=== PATIENT | male | born 1965 | race African-American/Black ===

== ENCOUNTER 2024-03-10 21:45 | Inpatient (IN) | payer OTHER ==
[~2024-03-10] VITALS: Ht 185.4 cm; Wt 74.3 kg
[~2024-03-10 21:45] MED LIST: ALBU18HF12 IH; ARIP10TA38 PO; ASPI-1444 PO; ATOR20TA65 PO; LEVE250T4 PO; OMEP20 PO; TAMS0.4C94 PO; VALB40CA2 PO
[2024-03-10] MEDS: LORazepam 2 MG/ML VIAL IM ONE (22:46)
[2024-03-10] MEDS: DiphenhydrAMINE HCL 50 MG/ML VIAL IM ONE (22:46)
[2024-03-11] MEDS ORDERED: HALOPERIDOL LACTATE 5 MG/ML VIAL ONE (00:21)
[2024-03-11 00:26] LABS: BASOPHILS % (AUTO) 0.5 % (0.0-2.0); EOSINOPHILS % (AUTO) 0.3 % (1.0-6.0); HEMATOCRIT 32.1 % (41-53); HEMOGLOBIN 10.8 g/dL (13.5-17.5); LYMPHOCYTES # (AUTO) 1.3 K/uL (1.0-4.8); LYMPHOCYTES % (AUTO) 8.9 % (22.0-44.0); MEAN CORPUSCULAR HEMOGLOBIN 29.2 pg (26.0-34.0); MEAN CORPUSCULAR HGB CONC 33.6 G/dL (31.0-37.0); MEAN CORPUSCULAR VOLUME 87 fL (80-100); MONOCYTES # (AUTO) 1.2 K/uL (0.1-1.0); MONOCYTES % (AUTO) 8.5 % (2.0-9.0); NEUTROPHILS # (AUTO) 11.6 K/uL (1.8-7.7); NEUTROPHILS % (AUTO) 81.8 % (40.0-70.0); PLATELET COUNT (AUTO) 543 K/uL (150-450); RED BLOOD CELL COUNT(AUTO) 3.69 MIL/uL (4.50-5.90); RED CELL DISTRIBUTION WIDTH 14.4 % (11.5-14.5); WHITE BLOOD COUNT (AUTO) 14.2 K/uL (4.5-11.0)
[2024-03-11] MEDS ORDERED: 0.9% SODIUM CHLORIDE 10 ML SYRINGE IVP PRN (00:30)
[2024-03-11] MEDS ORDERED: ACETAMINOPHEN 325 MG TABLET PO PRN ×2 (00:30→12:30)
[2024-03-11] MEDS ORDERED: ONDANSETRON HCL 4 MG/2 ML VIAL IVP PRN ×2 (00:30→12:30)
[2024-03-11] MEDS: LIDOCAINE 1% 10 ML VIAL SQ ONE (00:31)
[2024-03-11] MEDS: HALOPERIDOL LACTATE 5 MG/ML VIAL IVP ONE (00:32)
[2024-03-11] MEDS: POVIDONE-IODINE 10% 120 ML SOLUTION TP ONE (00:34)
[2024-03-11 00:35] LABS: ANION GAP 7 mmol/L (8-16); CALCIUM, TOTAL 8.7 mg/dL (8.8-10.5); CARBON DIOXIDE 28 mmol/L (22-29); CHLORIDE 101 mmol/L (98-107); CREATININE 0.98 mg/dL (0.60-1.30); GLOMERULAR FILTR. RATE CALC > 60 mL/min (>60); GLUCOSE,RANDOM 108 mg/dL (70-110); SODIUM SERUM 136 mmol/L (136-145); UREA NITROGEN, BLOOD 17 mg/dL (7-18)
[2024-03-11 00:41] LABS: ALANINE AMINOTRANSFERASE 34 U/L (12-78); ALBUMIN 3.1 g/dL (3.4-5.0); ALKALINE PHOSPHATASE 107 U/L (46-116); ASPARTATE AMINOTRANSFERASE 40 U/L (15-37); BILIRUBIN,TOTAL 0.5 mg/dL (0.1-1.0); TOTAL PROTEIN, SERUM 6.8 g/dL (6.4-8.2)
[2024-03-11] MEDS: PIPERACILLIN/TAZO 3.375 GM/D5W 50 ML IV ONE (00:55)
[2024-03-11] MEDS: VANCOMYCIN 1GM/WATER(PEG/NADA) 200 ML IV ONE ×2 (01:34→13:26)
[2024-03-11] MEDS: PIPERACILLIN/TAZO 3.375 GM/D5W 50 ML IV SCH (05:31)
[2024-03-11 07:30] LABS: APPEARANCE,URINE CLEAR (CLEAR); BILIRUBIN,URINE NEGATIVE (NEGATIVE); COLOR,URINE COLORLESS (YELLOW); GLUCOSE, URINE (UA) NEGATIVE (NEGATIVE); KETONES,URINE TRACE mg/dL (NEGATIVE); LEUKOCYTE ESTERASE ,URINE NEGATIVE (NEGATIVE); NITRATE,URINE NEGATIVE (NEGATIVE); OCCULT BLOOD,URINE NEGATIVE (NEGATIVE); PH,URINE 5.5 (5.0-8.0); PH,URINE DRUG SCREEN 5.5 (5.0-8.0); PROTEIN,URINE NEGATIVE (NEGATIVE); UROBILINOGEN,URINE <=1.0 mg/dL (<=1.0)
[2024-03-11 07:36] LABS: ALCOHOL, URINE DRUG SCREEN NEGATIVE (NEGATIVE); AMPHET/METH SCREEN,URINE POSITIVE (NEGATIVE); BARBITURATE SCREEN, URINE NEGATIVE (NEGATIVE); BENZODIAZEPINES SCREEN,URINE NEGATIVE (NEGATIVE); CANNABINOID SCREEN,URINE NEGATIVE (NEGATIVE); COCAINE SCREEN,URINE NEGATIVE (NEGATIVE); METHADONE SCREEN, URINE NEGATIVE (NEGATIVE); OPIATE SCREEN,URINE NEGATIVE (NEGATIVE); PHENCYCLIDINE SCREEN,URINE NEGATIVE (NEGATIVE)
[2024-03-11 08:01] LABS: COVID AG,FIA SOURCE NASAL SWAB
[2024-03-11 08:28] LABS: SARS-COV2 (COVID) ANTIGEN,FIA Negative (Negative)
[2024-03-11] MEDS ORDERED: HYDROCODONE/ACETAMINOPHEN 5-325 MG TABLET PO PRN (12:30)
[2024-03-11] MEDS ORDERED: BISACODYL 10 MG RECTAL RECTAL SUPPOSITORY PR PRN (12:30)
[2024-03-11] MEDS ORDERED: MORPHINE SULFATE 2 MG/ML SYRINGE IVP PRN (12:30)
[2024-03-11] MEDS ORDERED: ALBUTEROL SULFATE HFA 90 MCG/PUFF 8 GM INHALER IH PRN (12:30)
[2024-03-11] MEDS ORDERED: MAGNESIUM HYDROXIDE SUSPENSION 30 ML UDCUP PO PRN (12:30)
[2024-03-11] MEDS: HEPARIN SODIUM,PORCINE 5,000 UNITS/ML VIAL SQ SCH (15:25)
[2024-03-11] MEDS: VANCOMYCIN 1GM/WATER(PEG/NADA) 200 ML IV SCH (20:24)
[2024-03-11 20:55] VITALS: BP 134/80; PULSE 86; RESP 18; TEMP 98.6
[2024-03-11] MEDS: DOCUSATE SODIUM 100 MG CAPSULE PO SCH (21:04)
[2024-03-11] MEDS: LevETIRAcetam 500 MG TABLET PO SCH (21:04)
[2024-03-11] MEDS: ZOLPIDEM TARTRATE 5 MG TABLET PO PRN (22:20)
[2024-03-12 06:13] VITALS: BP 114/77; PULSE 66; RESP 20; TEMP 98
[2024-03-12 06:25] LABS: BASOPHILS % (AUTO) 0.3 % (0.0-2.0); EOSINOPHILS % (AUTO) 0.9 % (1.0-6.0); HEMATOCRIT 34.6 % (41-53); HEMOGLOBIN 11.7 g/dL (13.5-17.5); LYMPHOCYTES # (AUTO) 1.5 K/uL (1.0-4.8); LYMPHOCYTES % (AUTO) 15.2 % (22.0-44.0); MEAN CORPUSCULAR HEMOGLOBIN 29.2 pg (26.0-34.0); MEAN CORPUSCULAR HGB CONC 33.6 G/dL (31.0-37.0); MEAN CORPUSCULAR VOLUME 87 fL (80-100); MONOCYTES # (AUTO) 0.9 K/uL (0.1-1.0); MONOCYTES % (AUTO) 9.3 % (2.0-9.0); NEUTROPHILS # (AUTO) 7.2 K/uL (1.8-7.7); NEUTROPHILS % (AUTO) 74.3 % (40.0-70.0); PLATELET COUNT (AUTO) 573 K/uL (150-450); RED CELL DISTRIBUTION WIDTH 14.3 % (11.5-14.5); WHITE BLOOD COUNT (AUTO) 9.7 K/uL (4.5-11.0)
[2024-03-12 06:32] LABS: ANION GAP 9 mmol/L (8-16); CALCIUM, TOTAL 8.7 mg/dL (8.8-10.5); CARBON DIOXIDE 27 mmol/L (22-29); CHLORIDE 103 mmol/L (98-107); CREATININE 0.86 mg/dL (0.60-1.30); GLOMERULAR FILTR. RATE CALC > 60 mL/min (>60); GLUCOSE,RANDOM 89 mg/dL (70-110); SODIUM SERUM 139 mmol/L (136-145); UREA NITROGEN, BLOOD 15 mg/dL (7-18)
[2024-03-12 08:20] VITALS: BP 104/67; PULSE 82; RESP 18; TEMP 97.8
[2024-03-12] MEDS: ASPIRIN 81 MG DR TABLET PO SCH (09:54)
[2024-03-12] MEDS: TAMSULOSIN HCL 0.4 MG CAPSULE PO SCH (09:54)
[2024-03-12] MEDS: ARIPiprazole 10 MG TABLET PO SCH (09:55)
[2024-03-12] MEDS: PANTOPRAZOLE SODIUM 40 MG DR TABLET PO SCH (09:55)
[2024-03-12] MEDS: ATORVASTATIN CALCIUM 20 MG TABLET PO SCH (09:55)
[2024-03-12] MEDS ORDERED: LORazepam 2 MG/ML VIAL IVP PRN (14:55)
[2024-03-12] MEDS: LORazepam 1 MG TABLET PO PRN (15:02)
[2024-03-12 19:33] VITALS: BP 127/76; PULSE 89; RESP 18; TEMP 98.5
[2024-03-13 03:41] VITALS: BP 135/89; PULSE 82; RESP 18; TEMP 98.2
[2024-03-13 07:18] LABS: EOSINOPHILS % (AUTO) 2.6 % (1.0-6.0); HEMATOCRIT 33.7 % (41-53); HEMOGLOBIN 11.2 g/dL (13.5-17.5); LYMPHOCYTES # (AUTO) 1.4 K/uL (1.0-4.8); LYMPHOCYTES % (AUTO) 26.6 % (22.0-44.0); MEAN CORPUSCULAR HEMOGLOBIN 28.9 pg (26.0-34.0); MEAN CORPUSCULAR HGB CONC 33.4 G/dL (31.0-37.0); MEAN CORPUSCULAR VOLUME 87 fL (80-100); MONOCYTES # (AUTO) 0.6 K/uL (0.1-1.0); MONOCYTES % (AUTO) 11.3 % (2.0-9.0); NEUTROPHILS # (AUTO) 3.2 K/uL (1.8-7.7); NEUTROPHILS % (AUTO) 58.5 % (40.0-70.0); PLATELET COUNT (AUTO) 560 K/uL (150-450); RED BLOOD CELL COUNT(AUTO) 3.89 MIL/uL (4.50-5.90); RED CELL DISTRIBUTION WIDTH 14.2 % (11.5-14.5); WHITE BLOOD COUNT (AUTO) 5.4 K/uL (4.5-11.0)
[2024-03-13 07:28] LABS: ANION GAP 5 mmol/L (8-16); CALCIUM, TOTAL 8.4 mg/dL (8.8-10.5); CARBON DIOXIDE 29 mmol/L (22-29); CHLORIDE 103 mmol/L (98-107); GLOMERULAR FILTR. RATE CALC > 60 mL/min (>60); GLUCOSE,RANDOM 108 mg/dL (70-110); POTASSIUM 4.2 mmol/L (3.5-5.1); SODIUM SERUM 137 mmol/L (136-145); UREA NITROGEN, BLOOD 14 mg/dL (7-18)
[2024-03-13 08:00] VITALS: BP 127/84; PULSE 90; RESP 18; TEMP 99
[2024-03-13] MEDS ORDERED: AMOX1TAB16 PO (11:09)
== END 2024-03-13 15:25 | disposition home or self-care (01) | DRG 383 ==
LOC: EMS 21:47 → AHU 03-11 07:24 → 6S 03-11 20:36
PROVIDERS: ADMIT Internal Medicine; ATTEND Internal Medicine
PROC: 0X9K0ZZ Drainage of Left Hand, Open Approach (ICD-10-PCS; principal; 2024-03-11)
DX: L03.012 Cellulitis of left finger (principal); E78.5 Hyperlipidemia, unspecified; F20.9 Schizophrenia, unspecified; G24.01 Drug induced subacute dyskinesia; G40.909 Epilepsy, unspecified, not intractable, without status epilepticus; J45.909 Unspecified asthma, uncomplicated; K21.9 Gastro-esophageal reflux disease without esophagitis; F31.9 Bipolar disorder, unspecified; N40.0 Benign prostatic hyperplasia without lower urinary tract symptoms; F15.10 Other stimulant abuse, uncomplicated; Z20.822 Contact with and (suspected) exposure to COVID-19; Z53.20 Procedure and treatment not carried out because of patient's decision for unspecified reasons; F17.210 Nicotine dependence, cigarettes, uncomplicated; T43.505A Adverse effect of unspecified antipsychotics and neuroleptics, initial encounter; F41.9 Anxiety disorder, unspecified; Z79.82 Long term (current) use of aspirin; Z79.899 Other long term (current) drug therapy; Y92.89 Other specified places as the place of occurrence of the external cause
CPT/HCPCS: 80048; 80053; 80307; 81003; 83605; 85025; 87040; 87070; 87186; 87205; 99285; G0378; J1200; J1630; J1644; J2060; J2543; J3490; Q9967

== ENCOUNTER 2024-10-24 16:21 | Inpatient (IN) | payer MEDICAID, OTHER ==
[~2024-10-24] VITALS: Ht 188 cm; Wt 76.9 kg
[~2024-10-24 16:21] MED LIST changes: +AMOX-457 PO; -LEVE250T4 PO; +LEVE250T81 PO
[2024-10-24 17:21] LABS: BASOPHILS % (AUTO) 0.7 % (0.0-2.0); EOSINOPHILS % (AUTO) 1.7 % (1.0-6.0); HEMATOCRIT 36.9 % (41-53); HEMOGLOBIN 12.2 g/dL (13.5-17.5); LYMPHOCYTES # (AUTO) 2.1 K/uL (1.0-4.8); LYMPHOCYTES % (AUTO) 24.9 % (22.0-44.0); MEAN CORPUSCULAR HEMOGLOBIN 29.4 pg (26.0-34.0); MEAN CORPUSCULAR VOLUME 89 fL (80-100); MONOCYTES # (AUTO) 0.8 K/uL (0.1-1.0); MONOCYTES % (AUTO) 9.8 % (2.0-9.0); NEUTROPHILS # (AUTO) 5.2 K/uL (1.8-7.7); NEUTROPHILS % (AUTO) 62.9 % (40.0-70.0); PLATELET COUNT (AUTO) 442 K/uL (150-450); RED BLOOD CELL COUNT(AUTO) 4.14 MIL/uL (4.50-5.90); RED CELL DISTRIBUTION WIDTH 14.1 % (11.5-14.5); WHITE BLOOD COUNT (AUTO) 8.3 K/uL (4.5-11.0)
[2024-10-24 17:32] LABS: ANION GAP 6 mmol/L (8-16); CALCIUM, TOTAL 8.7 mg/dL (8.8-10.5); CARBON DIOXIDE 34 mmol/L (22-29); CHLORIDE 104 mmol/L (98-107); CREATININE 0.84 mg/dL (0.60-1.30); GLOMERULAR FILTR. RATE CALC > 60 mL/min (>60); GLUCOSE,RANDOM 91 mg/dL (70-110); POTASSIUM 3.9 mmol/L (3.5-5.1); SODIUM SERUM 143 mmol/L (136-145); UREA NITROGEN, BLOOD 17 mg/dL (7-18)
[2024-10-24 17:50] LABS: ALCOHOL, BLOOD (SERUM) < 3 mg/dL (0-10)
[2024-10-24] MEDS: HALOPERIDOL 5 MG TABLET PO ONE (21:20)
[2024-10-25 00:28] LABS: COVID AG,FIA SOURCE NASAL SWAB
[2024-10-25] MEDS ORDERED: ZOLPIDEM TARTRATE 10 MG TABLET PO PRN (00:30)
[2024-10-25 00:37] LABS: SARS-COV2 (COVID) ANTIGEN,FIA Negative (Negative)
[2024-10-25 00:52] VITALS: O2SAT 99
[2024-10-25 03:08] VITALS: BP 148/92; PULSE 74; RESP 18; TEMP 97.4
[2024-10-25 08:28] VITALS: BP 161/90; PULSE 87; RESP 17; TEMP 97.9; O2SAT 96
[2024-10-25] MEDS ORDERED: OLANZapine 5 MG TABLET PO SCH (09:45)
[2024-10-25] MEDS: OLANZapine 5 MG TABLET PO SCH (10:25)
[2024-10-25] MEDS ORDERED: GuaiFENesin/D-METHORPHAN [SUGAR-FREE] 200-20MG/10 ML SYRUP UDCUP PO PRN (10:30)
[2024-10-25] MEDS ORDERED: MAGNESIUM HYDROXIDE SUSPENSION 30 ML UDCUP PO PRN (10:30)
[2024-10-25] MEDS ORDERED: ONDANSETRON 4 MG TABLET PO PRN (10:30)
[2024-10-25] MEDS ORDERED: LOPERAMIDE HCL 2 MG CAPSULE PO PRN (10:30)
[2024-10-25] MEDS ORDERED: ACETAMINOPHEN 325 MG TABLET PO PRN (10:30)
[2024-10-25] MEDS ORDERED: ALBUTEROL SULFATE HFA 90 MCG/PUFF 8 GM INHALER IH PRN ×2 (10:30)
[2024-10-25] MEDS ORDERED: DOCUSATE SODIUM 100 MG CAPSULE PO PRN (10:30)
[2024-10-25] MEDS ORDERED: NICOTINE 14 MG/24 HOUR PATCH TD PRN (10:30)
[2024-10-25] MEDS ORDERED: PETROLATUM,WHITE 28 GM JELLY TP PRN (10:30)
[2024-10-25] MEDS ORDERED: MAG HYDROX/ALUMINUM HYD/SIMETH ES 30 ML SUSPENSION UDCUP PO PRN (10:30)
[2024-10-25] MEDS ORDERED: CloNIDine HCL 0.1 MG TABLET PO PRN (10:30)
[2024-10-25] MEDS: HALOPERIDOL 5 MG TABLET PO PRN (11:17)
[2024-10-25] MEDS: LORazepam 2 MG TABLET PO PRN (11:17)
[2024-10-25] MEDS: LevETIRAcetam 500 MG TABLET PO SCH (16:19)
[2024-10-25 20:00] VITALS: BP 155/84; PULSE 88; RESP 16; TEMP 97.7; O2SAT 97
[2024-10-26] MEDS: TAMSULOSIN HCL 0.4 MG CAPSULE PO SCH (08:46)
[2024-10-26] MEDS: ASPIRIN 81 MG DR TABLET PO SCH (08:46)
[2024-10-26] MEDS: OMEPRAZOLE 20 MG CAPSULE PO SCH (08:46)
[2024-10-26] MEDS: ATORVASTATIN CALCIUM 20 MG TABLET PO SCH (08:46)
[2024-10-26 09:25] VITALS: RESP 16
[2024-10-26 21:14] VITALS: BP 130/87; PULSE 92; RESP 18; TEMP 97.6; O2SAT 98
[2024-10-27 09:32] VITALS: BP 100/60; PULSE 100; RESP 16; TEMP 98; O2SAT 96
[2024-10-27 10:10] LABS: CHOL/HDL RATIO 2.7 (4.2-7.3); THYROID STIMULATING HORMONE 1.1 uIU/mL (0.36-3.74)
[2024-10-27 10:25] LABS: HEMOGLOBIN A1C 5.4 % (3.8-5.6)
[2024-10-27 20:53] VITALS: BP 116/63; PULSE 88; RESP 18; TEMP 98.2; O2SAT 99
[2024-10-28 08:10] VITALS: BP 112/64; PULSE 83; RESP 17; TEMP 98.3; O2SAT 100
[2024-10-28 23:32] VITALS: RESP 18
[2024-10-29 08:00] VITALS: BP 116/75; PULSE 85; RESP 18; TEMP 97.5; O2SAT 97
[2024-10-30 08:42] VITALS: BP 124/74; PULSE 95; RESP 16; TEMP 97; O2SAT 99
[2024-10-30 13:16] VITALS: RESP 16
[2024-10-30] MEDS: IBUPROFEN 400 MG TABLET PO PRN (13:16)
[2024-10-30 14:15] VITALS: RESP 16
[2024-10-30] MEDS ORDERED: BENZOCAINE 10% 7 GM GEL TP PRN (16:45)
[2024-10-30 20:00] VITALS: RESP 16
[2024-10-31 08:30] VITALS: BP 117/72; PULSE 96; RESP 17; TEMP 97.9; O2SAT 98
[2024-10-31] MEDS ORDERED: ATOR10TA69 PO (12:43)
[2024-10-31] MEDS ORDERED: OLAN5TAB94 PO (12:47)
== END 2024-10-31 17:07 | disposition left against medical advice (07) | DRG 750 ==
LOC: EMS 16:21 → B2S 10-25 01:15 → EMS 10-25 02:23 → B3A 10-25 10:30
PROVIDERS: ADMIT Psychiatry & Neurology Child & Adolescent Psychiatry; ATTEND Psychiatry & Neurology Child & Adolescent Psychiatry
PROC: GZ56ZZZ Individual Psychotherapy, Supportive (ICD-10-PCS; principal; 2024-10-25)
PROC: GZ52ZZZ Individual Psychotherapy, Cognitive (ICD-10-PCS; 2024-10-25)
DX: F20.0 Paranoid schizophrenia (principal); D64.9 Anemia, unspecified; E78.5 Hyperlipidemia, unspecified; K21.9 Gastro-esophageal reflux disease without esophagitis; J45.909 Unspecified asthma, uncomplicated; N40.0 Benign prostatic hyperplasia without lower urinary tract symptoms; F17.210 Nicotine dependence, cigarettes, uncomplicated; F32.A Depression, unspecified; M79.672 Pain in left foot; Z53.29 Procedure and treatment not carried out because of patient's decision for other reasons; M79.671 Pain in right foot; Z20.822 Contact with and (suspected) exposure to COVID-19; Z79.899 Other long term (current) drug therapy; Z79.82 Long term (current) use of aspirin; I10 Essential (primary) hypertension
CPT/HCPCS: 80048; 80061; 83036; 84443; 85025; G0480